=== PATIENT | male | born 1955 | race Caucasian/White ===

== ENCOUNTER 2023-07-13 14:28 | Emergency (ER) | payer MEDICARE, BC ==
[2023-07-13 15:10] LABS: BASOPHILS ABSOLUTE AUTO 0.02 10^3/uL (0.00-0.10); BASOPHILS PERCENT AUTO 0.2 % (0.0-1.0); EOSINOPHILS ABSOLUTE AUTO 0.01 10^3/uL (0.10-0.30); EOSINOPHILS PERCENT AUTO 0.1 % (1.0-3.0); HEMATOCRIT 41.6 % (40.0-52.0); HEMOGLOBIN 13.7 g/dL (13.0-17.0); IMMATURE GRAN ABSOLUTE AUTO 0.01 10^3/uL (0.00-0.50); IMMATURE GRAN PERCENT AUTO 0.1 % (0.0-5.0); LYMPHOCYTES PERCENT AUTO 8.2 % (20.0-40.0); MEAN CORPUSCULAR HEMOGLOBIN 30.2 pg (27.0-31.0); MEAN CORPUSCULAR HGB CONC 32.9 g/dL (32.0-36.0); MEAN CORPUSCULAR VOLUME 91.6 fL (82.0-92.0); MEAN PLATELET VOLUME 9.7 fL (7.4-10.4); MONOCYTES ABSOLUTE AUTO 0.33 10^3/uL (0.10-0.80); MONOCYTES PERCENT AUTO 3.9 % (2.0-8.0); NEUTROPHILS ABSOLUTE AUTO 7.43 10^3/uL (2.50-7.00); NEUTROPHILS PERCENT AUTO 87.5 % (50.0-70.0); PLATELET COUNT,PLT 182 10^3/uL (150-400); RED BLOOD CELL COUNT 4.54 10^6/uL (4.50-6.00); RED CELL DISTRIBUTION WIDTH 13.2 % (11.5-14.5)
[2023-07-13 15:26] LABS: ALBUMIN 3.89 g/dL (3.40-5.00); BILIRUBIN TOTAL 0.6 mg/dL (0.2-1.0); CARBON DIOXIDE,CO2 28.4 mmol/L (21.0-32.0); CREATININE 0.76 mg/dL (0.51-1.17); EST CRCL DRUG DOSING (CG) 88.75 mL/min; POTASSIUM,K 4.4 mmol/L (3.5-5.1); PROTEIN TOTAL,TP 7.7 g/dL (6.4-8.2)
[2023-07-13 16:07] LABS: APPEARANCE,URINE CLEAR (CLEAR); BILIRUBIN,URINE NEGATIVE (NEGATIVE); COLOR,URINE YELLOW (YELLOW); GLUCOSE,URINE NEGATIVE (NEGATIVE); KETONES,URINE 40 mg/dL (NEGATIVE); LEUKOCYTE ESTERASE,URINE NEGATIVE (NEGATIVE); NITRITE,URINE NEGATIVE (NEGATIVE); PH,URINE 5.5 (5.0-9.0); PROTEIN,URINE NEGATIVE (NEGATIVE); UROBILINOGEN,URINE 0.2 E.U./dL (0.2-1.0)
[2023-07-13 16:17] LABS: BACTERIA,URINE OCCASIONAL /HPF (NONE TO FEW); EPITHELIAL CELLS,URINE RARE /LPF; MUCUS,URINE RARE /LPF (NEGATIVE); OCCULT BLOOD,URINE TRACE-INTACT (NEGATIVE); RBC,URINE 0-5 /HPF (0-5); WBC,URINE 0-5 /HPF (0-5)
== END 2023-07-13 16:35 | disposition home or self-care (01) ==
LOC: KA.ED 14:28
DX: N23 Unspecified renal colic (principal); N28.1 Cyst of kidney, acquired; R31.1 Benign essential microscopic hematuria; K82.9 Disease of gallbladder, unspecified; I10 Essential (primary) hypertension
CPT/HCPCS: 36415; 74176; 80053; 81001; 85025; 99284